=== PATIENT | male | born 1990 | race Caucasian/White ===

== ENCOUNTER 2019-07-30 03:30 | Emergency (ER) | payer BC ==
[2019-07-30] MEDS ORDERED: Ondansetron 4 MG/2 ML SDV IVPUSH ONE (04:12)
[2019-07-30] MEDS ORDERED: Ondansetron 4 MG Tab.DIS ONE (04:20)
[2019-07-30] MEDS ORDERED: Ondansetron 4 MG Tab.DIS PO ONE (04:22)
--- NOTE | 2019-07-30 04:22 | EDM.PDOC ---
ED [facility] GENERAL MEDICAL PROBLEM - General Chief Complaint: Abdominal Pain Stated Complaint: abdominal pain Time Seen by Provider: 07/30/19 04:11 Source of Information: Reports: Patient History Limitations: Reports: No Limitations - History of Present Illness INITIAL COMMENTS - FREE TEXT/NARRATIVE: Patient is a 29-year-old gentleman who presents to the emergency department via private vehicle secondary to a complaint for abdominal pain. Patient states he awoke at approximately 2 a.m. with upper abdominal pain, had one episode of vomiting and was able to fall back asleep. He woke again at 3 a.m. with continued abdominal pain. Patient describes the discomfort as bubbling in the upper abdomen. Patient states he's had similar episodes like this in the past, but they usually resolve with Pepto-Bismol. Patient did not have any medication at the home. Patient's last meal was supper at home and approximately 1930. No one else in the family has similar symptoms. Patient denies chest pain, shortness of breath, fever, diarrhea, blood in vomitus, out of country travel, dysuria, testicular pain. Patient currently works at [employer]. Although patient lives closer to that facility. he decided to come to [place] because he was uncomfortable with the physician currently working the emergency department this evening. Onset: Today, Sudden Onset Date: 07/30/19 Onset Time: 02:00 Duration: Hour(s): Location: Reports: Abdomen Quality: Reports: Other (Bubbling) Improves with: Reports: None Worsens with: Reports: None Associated Symptoms: Reports: Nausea/Vomiting. Denies: Chest Pain, Diaphoresis , Fever/Chills Past Medical History - Past Surgical History HEENT Surgical History: Reports: Oral Surgery Musculoskeletal Surgical History: Reports: Arthroscopic Knee, Other (See Below) Other Musculoskeletal Surgeries/Procedures:: Bilateral ED ROS GENERAL - Review of Systems Review Of Systems: Comprehensive ROS is negative, except as noted in HPI. Constitutional: Reports: No Symptoms HEENT: Reports: No Symptoms Respiratory: Reports: No Symptoms Cardiovascular: Reports: No Symptoms Endocrine: Reports: No Symptoms GI/Abdominal: Reports: Abdominal Pain, Nausea, Vomiting. Denies: Black Stool, Bloody Stool, Constipation, Diarrhea, Hematemesis, Hematochezia, Mucous in Stool : Reports: No Symptoms Musculoskeletal: Reports: No Symptoms Skin: Reports: No Symptoms Neurological: Reports: No Symptoms Psychiatric: Reports: No Symptoms Hematologic/Lymphatic: Reports: No Symptoms Immunologic: Reports: No Symptoms ED EXAM, GI/ABD - Physical Exam Exam: See Below Exam Limited By: No Limitations General Appearance: Alert, WD/WN, No Apparent Distress Eyes: Bilateral: Normal Appearance Nose: Normal Inspection, Normal Mucosa, No Blood Throat/Mouth: Normal Inspection, Normal Oropharynx, No Airway Compromise Head: Atraumatic, Normocephalic Neck: Normal Inspection Respiratory/Chest: No Respiratory Distress, Lungs Clear, Normal Breath Sounds, No Accessory Muscle Use, Chest Non-Tender Cardiovascular: Normal Peripheral Pulses, Regular Rate, Rhythm, No Murmur GI/Abdominal Exam: Soft, No Organomegaly, No Distention, No Abnormal Bruit, No Mass, Tender (Upper quadrants), Abnormal Bowel Sounds (Hyperactive). No: Distended, Guarding, Rigid, Rebound (Male) Exam: No Hernia, Normal Inspection Back Exam: Normal Inspection. No: CVA Tenderness (L), CVA Tenderness (R) Extremities: Normal Inspection, No Pedal Edema Neurological: Alert, Oriented, Normal Cognition Psychiatric: Normal Affect, Normal Mood Skin Exam: Warm, Dry, Intact, Normal Color, No Rash Lymphatic: No Adenopathy Course - Vital Signs Last Recorded V/S: Last Vital Signs Temp 98.9 F 07/30/19 03:45 Pulse 120 H 07/30/19 03:45 Resp 18 07/30/19 03:45 BP 132/78 07/30/19 03:45 Pulse Ox 95 07/30/19 03:45 - Orders/Labs/Meds Orders: Active Orders 24 hr Category Date Time Status GI Cocktail Med 07/30/19 04:53 Once 45 ml PO ONETIME ONE Medication Orders Al Hydroxide/Mg Hydroxide (Gi Cocktail) 45 ml PO ONETIME ONE Stop: 07/30/19 04:54 Labs: Laboratory Tests 07/30/19 07/30/19 07/30/19 Range/Units 04:10 04:10 04:15 WBC 10.79 H (5.00-10.00) 10^3/uL RBC 5.73 (4.50-6.00) 10^6/uL Hgb 17.0 (13.0-17.0) g/dL Hct 49.0 (40.0-52.0) % MCV 85.5 (82.0-92.0) fL MCH 29.7 (27.0-31.0) pg MCHC 34.7 (32.0-36.0) g/dL RDW 12.1 (11.5-14.5) % Plt Count 235 (150-400) 10^3/uL MPV 9.7 (7.4-10.4) fL Immature Gran % (Auto) 0.3 (0.0-5.0) % Neut % (Auto) 89.9 H (50.0-70.0) % Lymph % (Auto) 6.3 L (20.0-40.0) % [place] % (Auto) 3.0 (2.0-8.0) % Eos % (Auto) 0.4 L (1.0-3.0) % Baso % (Auto) 0.1 (0.0-1.0) % Immature Gran # (Auto) 0.03 (0.00-0.50) 10^3/uL Neut # (Auto) 9.71 H (2.50-7.00) 10^3/uL Lymph # (Auto) 0.68 L (1.00-4.00) 10^3/uL [place] # (Auto) 0.32 (0.10-0.80) 10^3/uL Eos # (Auto) 0.04 L (0.10-0.30) 10^3/uL Baso # (Auto) 0.01 (0.00-0.10) 10^3/uL Sodium 138 (136-145) mmol/L Potassium 3.8 (3.3-5.3) mmol/L Chloride 100 (98-115) mmol/L Carbon Dioxide 24.7 (21.0-32.0) mmol/L Anion Gap 17.1 H (5-15) mmol/L BUN 15 (6-25) mg/dL Creatinine 0.92 (0.51-1.17) mg/dL Est Cr Clr Drug Dosing 132.38 mL/min Estimated GFR (MDRD) > 60 mL/min Glucose 124 H (75 - 99) mg/dL Calcium 8.7 (8.7-10.3) mg/dL Total Bilirubin 2.2 H (0.2-1.0) mg/dL AST 18 (15-37) U/L ALT 22 (12-78) U/L Alkaline Phosphatase 50 (46-116) IU/L Total Protein 8.0 (6.4-8.2) g/dL Albumin 4.11 (3.00-4.80) g/dL Lipase 82 (73-393) U/L Specimen Type . Urine Color Yellow (YELLOW) Urine Appearance Clear (CLEAR) Urine pH >= 9.0 (5.0-9.0) Ur Specific [place] 1.015 (1.005-1.030) Urine Protein 30 H (NEGATIVE) mg/dL Urine Glucose (UA) Negative (NEGATIVE) mg/dL Urine Ketones Negative (NEGATIVE) mg/dL Urine Occult Blood Negative (NEGATIVE) Urine Nitrite Negative (NEGATIVE) Urine Bilirubin Small H (NEGATIVE) Urine Urobilinogen 1.0 (0.2-1.0) E.U./dL Ur Leukocyte Esterase Negative (NEGATIVE) Urine RBC 0-5 (0-5) /HPF Urine WBC 0-5 (0-5) /HPF Urine Bacteria Rare (NONE TO FEW) /HPF Urine Mucus Few H (NEGATIVE) /LPF Meds: Medications Generic Name Dose Route Start Last Admin Trade Name Freq PRN Reason Stop Dose Admin Al Hydroxide/Mg Hydroxide 45 ml 07/30/19 04:53 Gi Cocktail PO 07/30/19 04:54 ONETIME ONE Discontinued Medications Generic Name Dose Route Start Last Admin Trade Name Freq PRN Reason Stop Dose Admin Ondansetron HCl 4 mg 07/30/19 04:22 07/30/19 04:20 Zofran Odt PO 07/30/19 04:23 4 mg ONETIME ONE Administration Ondansetron HCl Confirm 07/30/19 04:20 07/30/19 04:41 Zofran Odt Administered 07/30/19 04:21 Not Given Dose 4 mg .ROUTE .STK-MED ONE - Re-Assessments/Exams Free Text/Narrative Re-Assessment/Exam: 07/30/19 04:56 Patient afebrile, vital signs stable, discomfort resolved. Patient given Zofran and GI cocktail while in ER. Follow-up with PCP in [place] or presents emergency department if symptoms continue. Departure - Departure Time of Disposition: 04:56 Disposition: Home, Self-Care 01 Condition: Good Clinical Impression: Abdominal pain Qualifiers: Abdominal location: upper abdomen, unspecified Qualified Code(s): R10.10 - Upper abdominal pain, unspecified - Discharge Information Instructions: Nausea and Vomiting, Adult, [id number], Abdominal Pain, Adult, [id number] Forms: ED Department Discharge Additional Instructions: Follow-up with PCP in one to 2 days. Return to emergency department sooner if symptoms continue or worsen. Sepsis Event Note - Evaluation Sepsis Screening Result: Possible Sepsis Risk - Focused Exam Vital Signs: Vital Signs Temp Pulse Resp BP Pulse Ox 07/30/19 03:45 98.9 F 120 H 18 132/78 95 Date Exam was Performed: 07/30/19 Time Exam was Performed: 04:53 - My Orders Last 24 Hours: My Active Orders 07/30/19 04:53 GI Cocktail 45 ml PO ONETIME ONE - Assessment/Plan Last 24 Hours: My Active Orders 07/30/19 04:53 GI Cocktail 45 ml PO ONETIME ONE Assessment:: Abdominal pain Plan: Follow-up with PCP
[2019-07-30 04:50] LABS: ANION GAP 17.1 mmol/L (5-15); CHLORIDE,CL 100 mmol/L (98-115); SODIUM,NA 138 mmol/L (136-145)
[2019-07-30] MEDS ORDERED: GI Cocktail 45 ML BOTTLE PO ONE (04:53)
== END 2019-07-30 05:15 | disposition home or self-care (01) ==
LOC: KA.ED 03:30
DX: R10.10 Upper abdominal pain, unspecified (principal); R11.10 Vomiting, unspecified
CPT/HCPCS: 36415; 80053; 81001; 83690; 85025; 99284; A9270-GY

== ENCOUNTER 2019-12-06 09:34 | Emergency (ER) | payer BC ==
[2019-12-06] MEDS ORDERED: Lidocaine 2% 5 ML SDV INJECT ONE (09:37)
--- NOTE | 2019-12-06 09:44 | EDM.PDOC ---
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 He is right hand dominant holding knife slipped cutting left index finger dorsal surface. Has had difficulty with continued bleeding with any motion since then. Presents for evaluation if sutures would be applicable. Up-to-date on tetanus status. Onset Date: 12/05/19 Onset Time: 11:00 Duration: Hour(s): Location: Reports: Upper Extremity, Left Quality: Reports: Dull Severity: Mild Improves with: Reports: None Worsens with: Reports: Movement Context: Reports: Activity Associated Symptoms: Reports: No Other Symptoms Treatments TODDLER NANNY: Reports: Dressing(s) - Related Data Allergies Allergy/AdvReac Type Severity Reaction Status Date / Time No Known Drug Allergies Allergy Other Verified 12/06/19 09:42 Home Meds: Home Meds . [No Known Home Meds] 12/06/19 [History] Past Medical History HEENT History: Reports: None Cardiovascular History: Reports: None Respiratory History: Reports: None Gastrointestinal History: Reports: None Genitourinary History: Reports: None Musculoskeletal History: Reports: None Neurological History: Reports: None Psychiatric History: Reports: None Endocrine/Metabolic History: Reports: None Hematologic History: Reports: None Oncologic (Cancer) History: Reports: None Dermatologic History: Reports: None - Infectious Disease History Infectious Disease History: Reports: None - Past Surgical History Head Surgeries/Procedures: Reports: None HEENT Surgical History: Reports: Oral Surgery Cardiovascular Surgical History: Reports: None Respiratory Surgical History: Reports: None GI Surgical History: Reports: None Male Surgical History: Reports: None Endocrine Surgical History: Reports: None Neurological Surgical History: Reports: None Musculoskeletal Surgical History: Reports: Arthroscopic Knee, Other (See Below) Other Musculoskeletal Surgeries/Procedures:: Bilateral Social & Family History - Family History Family Medical History: Noncontributory - Tobacco Use Smoking Status *Q: Never Smoker - Caffeine Use Caffeine Use: Reports: Soda - Alcohol Use Alcohol Use History: No Alcohol Use in Last Twelve Months: No - Recreational Drug Use Recreational Drug Use: No Drug Use in Last 12 Months: No ED ROS GENERAL - Review of Systems Review Of Systems: Comprehensive ROS is negative, except as noted in HPI. ED EXAM, GENERAL - Physical Exam Exam: See Below Free Text/Narrative:: Alert oriented 3 in no acute distress. HEENT is negative discharge or deformity, no cyanosis, no pallor are noted Normal respiratory pattern with no difficulty. Radial pulse is intact. Capillary refill and motion intact the left second digit with a 1 cm x 0.7 cm flap, of the dorsal surface of the PIP. Motion of the digit causes flapped open with mild oozing of blood easily controlled with direct pressure. ED GENERAL MEDICAL PROCEDURES - Laceration/Wound Repair Left Dorsal Digit - 2nd (Index) Lac/wound length in cm: 1.0 Appearance: Subcutaneous, Irregular, Clean Distal NVT: Neuro & Vascular Intact, No Tendon Injury Anesthetic Type: Local Local Anesthesia - Lidocaine (Xylocaine): 2% Plain Local Anesthetic Volume: 1cc Skin Prep: Providone-Iodine (Betadine) Exploration/Debridement/Repair: Wound Explored, In a Bloodless Field, Explored to Base Closed with: Sutures Suture Size: 4-0 # of Sutures: 3 Suture Type: Nylon, Interrupted Drain Placement: No Sterile Dressing Applied: Provider Tetanus Status Addressed: Yes Complications: No Course - Vital Signs Last Recorded V/S: Last Vital Signs Temp 35.6 C L 12/06/19 09:34 Pulse 80 12/06/19 09:34 Resp 18 12/06/19 09:34 BP 135/81 12/06/19 09:34 Pulse Ox 100 12/06/19 09:34 - Orders/Labs/Meds Meds: Medications Discontinued Medications Generic Name Dose Route Start Last Admin Trade Name Greg PRN Reason Stop Dose Admin Lidocaine 5 ml 12/06/19 09:37 12/06/19 09:59 Xylocaine-Mpf 2% INJECT 12/06/19 09:38 5 ml ONETIME ONE Administration Neomycin/Polymyxin/Bacitracin Confirm 12/06/19 10:14 12/06/19 10:22 Triple Antibiotic Oint Administered 12/06/19 10:15 1 each Dose Administration 1 each .ROUTE .STK-MED ONE Neomycin/Polymyxin/Bacitracin 0.9 gm 12/06/19 10:15 12/06/19 10:23 Triple Antibiotic Oint TOP 12/06/19 10:16 1 applic ONETIME ONE Administration Departure - Departure Time of Disposition: 10:26 Disposition: Home, Self-Care 01 Condition: Good Clinical Impression: Laceration - Discharge Information *PRESCRIPTION DRUG MONITORING PROGRAM REVIEWED*: Not Applicable *COPY OF PRESCRIPTION DRUG MONITORING REPORT IN PATIENT LAUREEN: Not Applicable Forms: ED Department Discharge Additional Instructions: Keep clean and dry. remove dressing tomorrow am and clean, then redress with band aid to keep covered during day. Open at night. Use splint to protect after tomorrow am dressing change. No swimming, dish washing, or soaking until sutures are removed. Cover when in dirty environment. Suture removal in 10 days. Call or return if concerns. Sepsis Event Note (ED) - Focused Exam Vital Signs: Vital Signs Temp Pulse Resp BP Pulse Ox 12/06/19 09:34 35.6 C L 80 18 135/81 100 - Problem List & Annotations (1) Laceration SNOMED Code(s): 684163760 Code(s): VHY9588 - Status: Acute Priority: High - Problem List Review Problem List Initiated/Reviewed/Updated: Yes - Assessment/Plan Plan: Keep clean and dry. remove dressing tomorrow am and clean, then redress with band aid to keep covered during day. Open at night. Use splint to protect after tomorrow am dressing change. No swimming, dish washing, or soaking until sutures are removed. Cover when in dirty environment. Suture removal in 10 days. Call or return if concerns.
[2019-12-06] MEDS ORDERED: Bacitracin/Neomycin/Polymyxin B Oint 0.9 GM U/D Packet TOP ONE (10:15)
[2019-12-06] MEDS: Bacitracin/Neomycin/Polymyxin B Oint 0.9 GM U/D Packet ONE ×2 (10:22→13:06)
[2019-12-06] MEDS: Bacitracin/Neomycin/Polymyxin B Oint 28.4 GM Tube TOP ONE ×2 (10:23→13:06)
== END 2019-12-06 10:34 | disposition home or self-care (01) ==
LOC: KA.ED 09:34
DX: S61.211A Laceration without foreign body of left index finger without damage to nail, initial encounter (principal); W26.0XXA Contact with knife, initial encounter
CPT/HCPCS: 12001; 99282-25; J2001